=== PATIENT | male | born 1960 | race Caucasian/White ===

== ENCOUNTER 2016-09-05 19:00 | Emergency (ER) | payer BC ==
--- NOTE | ~2016-09-05 | CT2 ---
[facility]. [facility] A Service of [facility] RADIOLOGY TEXT RESULTS PATIENT: MICHELLE MCPHERSON LOCATION: SED : 62 UNIT #: [id number] AGE: [address]: Aramis Mondragon MD SEX: M ORDER DR: [id number] [place] [id number] E MR#: [id number] Acc #: [id number] NAME: MICHELLE MCPHERSON : 1960 SEX: M STUDY DATE/TIME: 09/05/2016 21:01 UNIT: SED ROOM: STUDY DESCRIPTION: CT Abd and Pelv W Cont Attending Physician: Aramis Mondragon M.D. Ordering Physician: Aramis Mondragon M.D. Primary Care Physician: Primary Care Physician No MEDICAL IMAGING REPORT This report is preliminary unless electronic signature is present. EXAM Abdomen and pelvis CT with contrast, 09/05/2016 INDICATIONS Abdominal pain in the lower abdomen since Sunday, worse after meals. History of appendectomy. TECHNIQUE Contrast-enhanced abdomen and pelvis CT was performed. This CT exam was performed with one or more of the following radiation dose reduction techniques: Automatic exposure control, adjustment of mA and/or kV according to patient size, and iterative reconstruction. COMPARISON 08/07/[address] ABDOMEN: Included lung bases are clear. No effusion. Aorta demonstrates no aneurysm or dissection. Spleen, adrenal glands and pancreas are unremarkable. Gallbladder unremarkable. Liver unremarkable. Kidneys unremarkable. 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 CT PELVIS: The bladder is distended. Prostate unremarkable. No drainable fluid collection in the pelvis. There is inflammation of the proximal sigmoid colon extending over a distance of about 8-9 cm. Imaging features suggest sequelae of short-segment inflammatory/infectious colitis or diverticulitis. There is one subtle probable inflamed diverticulum present. Regardless, there is no upstream bowel obstruction, free air or drainable fluid collection at this time. Appendix surgically absent. Inguinal canals are unremarkable. Incidental umbilical hernia contains fat only. 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 This is unchanged and relates to pars defects. IMPRESSION 1. Inflammatory change of the proximal sigmoid colon either representing short-segment inflammatory or infectious colitis, or diverticulitis. The affected portion of the sigmoid colon measures up to 8-9 cm. No free air, abscess or drainable fluid collection or bowel obstruction at this time. 2. The appendix is surgically absent. 3. Stable antegrade listhesis of L5 on S1. Dictated by... Saad Spencer M.D. THIS IS AN ELECTRONICALLY VERIFIED REPORT Saad Spencer M.D. at 09/06/2016 3:17 PM JOSE/oliver TD: 09/05/2016 23:29 JOB #: [id number] MEDICAL IMAGING REPORT Page 1 of 1
[~2016-09-05 19:00] MED LIST: NO MEDICATIONS
[2016-09-05 19:47] LABS: BASOPHIL% 0.6 % (0-2.5); EOSINOPHIL# 0.1 X10e3 (0-0.7); EOSINOPHIL% 1.5 % (0.0-7.0); HEMOGLOBIN 15.3 gm/dL (13.0-16.0); LYMPHOCYTE# 1.7 X10e3 (1.0-3.5); LYMPHOCYTE% 25.5 % (17.0-45.0); MEAN CELL VOLUME 86.2 FL (83-96); MEAN CORPUSCULAR HEMOGLOBIN 29.9 PG (28-34); MEAN CORPUSCULAR HGB CONC 34.7 g/dL (30-36); MEAN PLATELET VOLUME 7.8 FL (6.5-11.5); MONOCYTE# 0.6 X10e3 (0-1.0); MONOCYTE% 8.4 % (3.0-12.0); NEUTROPHIL# 4.3 X10e3 (1.5-7.1); PLATELET COUNT 214 X10e3 (140-420); RED CELL DISTRIBUTION WIDTH 12.9 % (11.0-15.5); WHITE BLOOD COUNT 6.7 X10e3 (4.0-10.5)
[2016-09-05 19:50] LABS: DIFF IND NO
[2016-09-05 20:05] LABS: ALBUMIN SERUM 4.3 g/dL (3.5-5.0); BILIRUBIN, DIRECT 0.2 mg/dL (0.0-0.2); BILIRUBIN,INDIRECT 0.7 mg/dL (0.0-0.9); BILIRUBIN,TOTAL 0.9 mg/dL (0.2-2.0); CALCIUM SERUM 9.3 mg/dL (8.4-10.2); POTASSIUM 3.5 mmol/L (3.5-5.1); PROTEIN TOTAL SERUM 7.6 g/dL (6.0-8.3)
[2016-09-05 20:25] LABS: URINE SOURCE CLEAN CATCH
[2016-09-05 20:27] LABS: MICRO INDICATED? NO; URINE APPEARANCE CLEAR; URINE BILIRUBIN NEG (NEG); URINE BLOOD NEG (NEG); URINE COLOR YELLOW; URINE GLUCOSE NEG (NORM); URINE KETONE TRACE (NEG); URINE LEUKOCYTE ESTERASE NEG (NEG); URINE NITRATE NEG (NEG); URINE PROTEIN NEG (NEG); URINE SPECIFIC GRAVITY <=1.005 (1.003-1.035); URINE UROBILINOGEN 0.2 MG/DL (NORM)
== END 2016-09-05 21:45 | disposition home or self-care (01) ==
LOC: SED 19:00
PROVIDERS: Emergency Medicine
DX: K57.32 Diverticulitis of large intestine without perforation or abscess without bleeding (principal); Z90.49 Acquired absence of other specified parts of digestive tract; Z90.89 Acquired absence of other organs
CPT/HCPCS: 36415; 74177; 80048; 80076; 81003; 82150; 83690; 85025; 96360; 99284; Q9967